=== PATIENT | male | born 1960 | race Caucasian/White ===

== ENCOUNTER 2024-12-20 10:49 | Emergency (ER) | payer MEDICAID ==
[~2024-12-20] VITALS: Ht 172.7 cm; Wt 101.8 kg
[2024-12-20 11:01] VITALS: BP 153/87; PULSE 106; RESP 16; TEMP 97.9; O2SAT 100
[2024-12-20] MEDS ORDERED: ATOR-2 PO (11:08)
[2024-12-20] MEDS ORDERED: ALPR0.5T8 PO (11:08)
[2024-12-20] MEDS ORDERED: METF-446 PO (11:08)
[2024-12-20] MEDS ORDERED: SERT-440 PO (11:08)
[2024-12-20] MEDS ORDERED: GLIP10TA16 PO (11:08)
[2024-12-20] MEDS ORDERED: MELO-108 PO (11:18)
[2024-12-20 12:36] LABS: BASOPHILS % (AUTO) 0.4 % (0.0-2.0); EOSINOPHILS % (AUTO) 0.8 % (1.0-6.0); HEMATOCRIT 44.1 % (41-53); HEMOGLOBIN 15.3 g/dL (13.5-17.5); LYMPHOCYTES # (AUTO) 1.6 K/uL (1.0-4.8); LYMPHOCYTES % (AUTO) 16.1 % (22.0-44.0); MEAN CORPUSCULAR HGB CONC 34.6 G/dL (31.0-37.0); MEAN CORPUSCULAR VOLUME 90 fL (80-100); MONOCYTES # (AUTO) 0.6 K/uL (0.1-1.0); MONOCYTES % (AUTO) 5.7 % (2.0-9.0); NEUTROPHILS # (AUTO) 7.5 K/uL (1.8-7.7); PLATELET COUNT (AUTO) 313 K/uL (150-450); RED BLOOD CELL COUNT(AUTO) 4.93 MIL/uL (4.50-5.90); RED CELL DISTRIBUTION WIDTH 13.1 % (11.5-14.5); WHITE BLOOD COUNT (AUTO) 9.7 K/uL (4.5-11.0)
[2024-12-20 12:40] LABS: ANION GAP 10 mmol/L (8-16); CALCIUM, TOTAL 8.7 mg/dL (8.8-10.5); CARBON DIOXIDE 26 mmol/L (22-29); CHLORIDE 99 mmol/L (98-107); CREATININE 1.15 mg/dL (0.60-1.30); GLOMERULAR FILTR. RATE CALC > 60 mL/min (>60); GLUCOSE,RANDOM 262 mg/dL (70-110); POTASSIUM 4.2 mmol/L (3.5-5.1); SODIUM SERUM 135 mmol/L (136-145); UREA NITROGEN, BLOOD 15 mg/dL (7-18)
[2024-12-20 14:21] LABS: TROPONIN I-HIGH SENSITIVITY 21 ng/L (<76)
[2024-12-20] MEDS ORDERED: LORA-1000 PO (14:50)
== END 2024-12-20 15:03 | disposition home or self-care (01) ==
LOC: EMS 10:52
DX: F41.0 Panic disorder [episodic paroxysmal anxiety] (principal); R00.2 Palpitations; H53.8 Other visual disturbances; E11.65 Type 2 diabetes mellitus with hyperglycemia; I10 Essential (primary) hypertension; Z79.1 Long term (current) use of non-steroidal anti-inflammatories (NSAID); Z79.84 Long term (current) use of oral hypoglycemic drugs
CPT/HCPCS: 80048; 82962; 84484; 85025; 93005; 99284